=== PATIENT | male | born 1975 | race Caucasian/White ===

== ENCOUNTER 2018-02-18 09:09 | Emergency (ER) | payer MEDICARE, MEDICAID ==
--- OUTSIDE RECORDS SUMMARY | 2018-02-18 09:22 | XMS REPORT | Continuity of Care Document ---
:1975 External Reference #:[id number] Author Name Manuela Conklin Care Team Providers Name Role Phone Diane Willoughby MD Care Team Information Master [employer] Glass Technician Unavailable Diane Willoughby MD Primary Care Physician Unavailable Payers Type Date Identification Numbers Payment Provider Subscriber Policy Number: [id number] [employer] Salvatore Stevenson PayID: [id number] [address] [address] [place] [address] Policy Number: [id number] Medicaid Salvatore Stevenson PayID: [id number] [address] [place] [address] Expires: 2010 Policy Number: [id number] [employer] Salvatore Stevenson PayID: [id number] [address] [address] [place] [address] Advance Directives Description No Information Available Problems Date Description Provider Status Onset: 12/27/2017 Secondary polycythemia Georgia Gunter DO Active Onset: 12/24/2017 Tobacco use Larry Monreal MD Active Onset: 12/24/2017 Hemorrhage of rectum and anus Larry Monreal MD Active Onset: 08/21/2017 Iron deficiency Georgia Gunter DO Active Onset: 08/21/2017 Vitamin D deficiency Georgia Gunter DO Active Onset: 08/21/2017 Vitamin B deficiency Georgia Gunter DO Active Onset: 08/07/2017 Heavy drinker Georgia Gunter DO Active Onset: 08/07/2017 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 Onset: 11/11/2015 Other fecal abnormalities Mariangel Mathew MD Active Onset: 11/11/2015 Neuralgia Mariangel Mathew MD Active Onset: 11/11/2015 Late effect of spinal cord injury Mariangel Mathew MD Active Family History Date Family Member(s) Problem(s) Comments Father due to Liver Disease () Father Cirrhosis Father Diabetes Mother Diverticulitis Maternal Grandmother Crohn's Disease Social History Type Date Description Comments Sex Unknown Marital Status Patient is Lives With Alone Home Environment Lives With young daughter 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 Disabled Smokeless Tobacco Never Used Smokeless Tobacco ETOH Use Uses Alcohol Daily 10 vodkas daily Tobacco Use Start: Unknown Patient is a current smoker, smokes every day Recreational Drug Use Marijuana Daily Smoking Status Reviewed: 12/24/17 Patient is a current smoker, smokes every day Allergies, Adverse Reactions, Alerts Description No Known Drug Allergies Medications Medication Date Status Form Strength Qnty SIG Indications Ordering Provider Lovenox 12/28 Active Solution 40mg/0.4M 12ml 40 mg sq q12 Lester L Georgia, Xarelto 08/30 Active Tablets 20mg 30tab 1 tabl by s mouth every Georgia, DO Omeprazole Active Capsules DR 20mg 1 by mouth Unknown / every day Lyrica Active Capsules 100mg 1 cap by Unknown /0000 mouth twice a day Tizanidine HCL Active Capsules 2mg 2 tab by Unknown /0000 mouth at bedtime Flonase Allergy Active Suspension 50mcg/Act 2 spray each Unknown Relief /0000 nare every day ALL Day Allergy Active Tablets 10mg 1 tablet by Unknown /0000 mouth every day Flovent Diskus Active Aerosol 250mcg/Bl use 1 Unknown /0000 ist inhalation twice a day as needed (max daily dose: 2 inhalation) Ventolin HFA Active Aerosol 108(90Bas take 2 puffs Unknown /0000 e) every 6 mcg/Act hours as needed for shortness of breath. Golytely 12/24 Hx Solution 236gm 4000m drink half K62.5 Rah Rec l the evening , Larry, - before and 01/24 half morning of the procedure (1 cup every 10') Dulcolax 12/[address] 5mg 4tabs 4 tablets K62.5 Rah taken a 8pm , Larry, - the day 01/24 before the procedure Magnesium 12/24 Hx Solution 1.745GM/3 296ml one bottle K62.5 Rah Citrate 0ML at 12 noon , Larry, - the day 01/24 before colonoscopy Folic Acid 08/21 Hx Tablets 1mg 30tab 1 tabl by Bo, s mouth every Georgia, - day DO 12/12 Ergocarciferol 08/21 Hx Capsules 24777X 6caps 1 cap po q Boufal, week Georgia, - DO 12/12 Neurontin 12/01 Hx Capsules 300mg 180ca 600 mg (2 M79.2 Cator, ps tabs) by MD Mariangel - mouth 3 08/07 times a day Neurontin 12/01 Hx Capsules 300mg 180ca 600 mg (2 M79.2 Cator, ps tabs) by MD Mariangel - mouth 3 08/07 times a day Neurontin 11/10 Hx Capsules 300mg 90cap 300 mg by M79.2 Cator, s mouth 3 MD Mariangel - times a day 12/01 Fluticasone Hx Suspension 50mcg/Act 1 spray to Unknown Propionate /0000 each nare - every day 08/07 Xarelto Hx Tablets 15mg Take 1 Unknown /0000 Tablet By - Mouth Twice 08/30 A Day For Days Medications Administered in Office Medication Date Status Form Strength Qnty SIG Indications Ordering Provider Vitamin B12 Administered Injection Boufal, Injection 1000 018 Georgia, mcg/Ml DO Vitamin B12 Administered Injection Boufal, Injection 1000 018 Georgia, mcg/Ml DO Immunizations Description No Information Available Vital Signs Date Vital Result Comment 02/05/2018 3:31pm BP Systolic Sitting Left Arm 128 mmHg BP Diastolic Sitting Left Arm 90 mmHg Heart Rate 93 /min Respiratory Rate 16 /min Height 69 inches 5'9" Weight 194.00 lb BMI (Body Mass Index) 28.6 kg/m2 BSA (Body Surface Area) 2.04 m2 [place] body weight in kilograms 73 kg O2 % BldC Oximetry 95 % 12/27/2017 9:30am BP Systolic Sitting Right Arm 121 mmHg BP Diastolic Sitting Right Arm 82 mmHg Body Temperature 96.1 F Heart Rate 100 /min Respiratory Rate 20 /min Height 69 inches 5'9" Weight 189.25 lb BMI (Body Mass Index) 27.9 kg/m2 BSA (Body Surface Area) 2.02 m2 [place] body weight in kilograms 73 kg O2 % BldC Oximetry 93 % Pain Level 7 Legs 12/24/2017 9:39am BP Systolic Sitting Left Arm 126 mmHg BP Diastolic Sitting Left Arm 90 mmHg Heart Rate 76 /min Respiratory Rate 16 /min Height 69 inches 5'9" Weight 189.00 lb BMI (Body Mass Index) 27.9 kg/m2 BSA (Body Surface Area) 2.02 m2 [place] body weight in kilograms 73 kg 12/12/2017 11:25am BP Systolic 121 mmHg Left BP Diastolic 79 mmHg Left Body Temperature 98.6 F Heart Rate 101 /min Respiratory Rate 20 /min O2 % BldC Oximetry 96 % Pain Level 7 Back, Legs 11/07/2017 11:40am BP Systolic 104 mmHg Left BP Diastolic 71 mmHg Left Body Temperature 98.4 F Heart Rate 90 /min Respiratory Rate 20 /min Weight 184.00 lb O2 % BldC Oximetry 96 % Pain Level 7 Spine 10/25/2017 1:52pm BP Systolic 119 mmHg BP Diastolic 77 mmHg Body Temperature 98.5 F Heart Rate 105 /min Respiratory Rate 18 /min Weight 179.38 lb O2 % BldC Oximetry 97 % Pain Level 7 legs and feet 08/21/2017 10:18am BP Systolic 117 mmHg BP Diastolic 79 mmHg Body Temperature 98.3 F Heart Rate 98 /min Respiratory Rate 18 /min Weight 179.12 lb O2 % BldC Oximetry 97 % Pain Level 7 All over 08/07/2017 11:03am BP Systolic 115 mmHg BP Diastolic 75 mmHg Body Temperature 97.8 F Heart Rate 94 /min Respiratory Rate 16 /min Height 69.75 inches 5'9.75" Weight 181.00 lb BMI (Body Mass Index) 26.2 kg/m2 BSA (Body Surface Area) 2.00 m2 [place] body weight in kilograms 75 kg O2 % BldC Oximetry 99 % Pain Level 7 right leg 12/02/2015 9:53am BP Systolic Sitting Left Arm 122 mmHg BP Diastolic Sitting Left Arm 78 mmHg Body Temperature 99.0 F Heart Rate 99 /min Height 69 inches 5'9" Weight 183.00 lb BMI (Body Mass Index) 27.0 kg/m2 BSA (Body Surface Area) 1.99 m2 O2 % BldC Oximetry 97 % ra 11/11/2015 8:43am BP Systolic Sitting Left Arm 132 mmHg BP Diastolic Sitting Left Arm 78 mmHg Body Temperature 98.4 F Heart Rate 98 /min Height 69 inches 5'9" Weight 183.00 lb BMI (Body Mass Index) 27.0 kg/m2 BSA (Body Surface Area) 1.99 m2 [place] body weight in kilograms 73 kg O2 % BldC Oximetry 98 % ra Results Test Date Facility Test Result H/L Range Note CBC 12/27/2017 [facility] White Blood 6.5 K/uL N 3.4-10.5 1 W/Automated [address] [place] [address] [phone] Red Blood Count 5.99 M/uL High 4.20-5.80 Hemoglobin 17.4 gm/dL High 12.8-17.0 Hematocrit 52.5 % High 38.0-48.0 Mean Cell Volume 87.6 fl N 80.0-96.0 Mean Corpuscular HGB 29.0 pg N 27.0-33.0 Mean Corpuscular HGB Conc 33.1 g/dL N 31.7-36.0 Platelet Count 159 K/uL N 155-360 Red Cell Distri Width SD 48.3 fl N 36-51 Red Cell Distri Width %CV 15.1 % N 11.6-15.8 Mean Platelet Volume 10.0 fL N 6.6-10.6 Neut% 70.3 % N 33.0-73.0 Lymph % 17.0 % Low 20.0-42.0 [place] % 10.4 % High 0.0-10.0 Eo% 1.7 % N 0.0-6.6 Bas% 0.6 % N 0.0-1.1 Neut# 4.55 K/uL N 1.8-7.0 Lymph # 1.10 K/uL N 1.0-4.0 [place] # 0.67 K/uL N 0.0-0.8 Eos # 0.11 K/uL N 0.0-0.5 Baso # 0.04 K/uL N 0.0-0.1 Iron-Tibc-%Sat 12/27/2017 [facility] Serum Iron 56 g/dL Low 65-175 [address] [place] [address] [phone] Total Iron Binding Capacity 499 g/dL High 250-450 Transferrin %Saturation 11 % Low 12-57 Laboratory test 12/27/2017 [facility] Ferritin 16 ng/mL Low 26-388 finding [address] [place] [address] [phone] Comprehensive 12/05/2017 [facility] Glucose 132 mg/dL High 74-106 2 Metabolic Panel [address] [place] [address] [phone] BUN 6 mg/dL Low 7-18 Creatinine 1.0 mg/dL N 0.6-1.3 Glom Filtration Rate, Estimate >60 mL/min >60 If >60 mL/min >60 3 BUN/Creat 6.0 ratio Sodium 137 mmol/L N 136-145 Potassium 3.5 mmol/L N 3.5-5.1 Chloride 96 mmol/L Low 98-107 Carbon Dioxide 32 mmol/L N 21-32 Anion Gap 9 mEq/L N 8-16 Calcium 8.7 mg/dL N 8.5-10.1 Total Protein 7.0 g/dL N 6.4-8.2 Albumin 3.5 g/dL N 3.4-5.0 Globulin 3.5 g/dL N 1.9-4.3 Alb/Glob 1.0 ratio Bilirubin,Total 1.3 mg/dL High 0.2-1.0 Sgot/Ast 67 U/L High 15-37 SGPT/Alt 59 U/L N 12-78 Alkaline Phosphatase 95 U/L N 45-117 CBS W/Automated Diff 12/05/2017 [facility] White Blood 9.1 K/uL N 3.4-10.5 [address] [place] [address] [phone] Red Blood Count 6.01 M/uL High 4.20-5.80 Hemoglobin 17.7 gm/dL High 12.8-17.0 Hematocrit 53.7 % High 38.0-48.0 Mean Cell Volume 89.4 fl N 80.0-96.0 Mean Corpuscular HGB 29.5 pg N 27.0-33.0 Mean Corpuscular HGB Conc 33.0 g/dL N 31.7-36.0 Platelet Count 130 K/uL 155-360 Red Cell Distri Width SD 50.0 fl N 36-51 Red Cell Distri Width %CV 15.5 % N 11.6-15.8 Mean Platelet Volume 11.1 fL 6.6-10.6 Neut% 80.6 % High 33.0-73.0 Lymph % 10.0 % Low 20.0-42.0 [place] % 8.5 % N 0.0-10.0 Eo% 0.7 % N 0.0-6.6 Bas% 0.2 % N 0.0-1.1 Neut# 7.31 K/uL High 1.8-7.0 Lymph # 0.91 K/uL Low 1.0-4.0 [place] # 0.77 K/uL N 0.0-0.8 Eos # 0.06 K/uL N 0.0-0.5 Baso # 0.02 K/uL N 0.0-0.1 Iron-Tibc-%Sat 12/05/2017 [facility] Serum Iron 134 g/dL N 65-175 [address] [place], [place] [address] [phone] Total Iron Binding Capacity 461 g/dL High 250-450 Transferrin %Saturation 29 % N 12-57 Laboratory test 12/05/2017 [facility] Ferritin 37 ng/mL N 26-388 finding [address] [place], [place] [address] [phone] Vitamin B12 And 12/05/2017 [facility] Vitamin B12 438 pg/mL N 193-986 Folate [address] [place] [address] [phone] Folic Acid 19.4 ng/mL High 3.1-17.5 Slide Review 12/05/2017 [facility] Slide Review . 4 [address] [place] [address] [phone] Comprehensive 10/18/2017 [facility] Glucose 107 mg/dL High 74-106 5 Metabolic Panel [address] [place] [address] [phone] BUN 2 mg/dL Low 7-18 Creatinine 0.8 mg/dL N 0.6-1.3 Glom Filtration Rate, Estimate >60 mL/min >60 If >60 mL/min >60 6 BUN/Creat 2.5 ratio Sodium 133 mmol/L Low 136-145 Potassium 3.6 mmol/L N 3.5-5.1 Chloride 93 mmol/L Low 98-107 Carbon Dioxide 33 mmol/L High 21-32 Anion Gap 7 mEq/L Low 8-16 Calcium 8.4 mg/dL Low 8.5-10.1 Total Protein 6.7 g/dL N 6.4-8.2 Albumin 3.4 g/dL N 3.4-5.0 Globulin 3.3 g/dL N 1.9-4.3 Alb/Glob 1.0 ratio Bilirubin,Total 1.3 mg/dL High 0.2-1.0 Sgot/Ast 77 U/L High 15-37 SGPT/Alt 73 U/L N 12-78 Alkaline Phosphatase 93 U/L N 45-117 CBS W/Automated Diff 10/18/2017 [facility] White Blood 7.2 K/uL N 3.4-10.[address] Count [place], [place] [address] [phone] Red Blood Count 5.75 M/uL N 4.20-5.80 Hemoglobin 16.7 gm/dL N 12.8-17.0 Hematocrit 48.8 % High 38.0-48.0 Mean Cell Volume 84.9 fl N 80.0-96.0 Mean Corpuscular HGB 29.0 pg N 27.0-33.0 Mean Corpuscular HGB Conc 34.2 g/dL N 31.7-36.0 Platelet Count 122 K/uL Low 155-360 Red Cell Distri Width SD 54.9 fl High 36-51 Red Cell Distri Width %CV 18.5 % High 11.6-15.8 Mean Platelet Volume 10.3 fL N 6.6-10.6 Neut% 73.6 % High 33.0-73.0 Lymph % 13.2 % Low 20.0-42.0 [place] % 11.3 % High 0.0-10.0 Eo% 1.5 % N 0.0-6.6 Bas% 0.4 % N 0.0-1.1 Neut# 5.27 K/uL N 1.8-7.0 Lymph # 0.95 K/uL Low 1.0-4.0 [place] # 0.81 K/uL High 0.0-0.8 Eos # 0.11 K/uL N 0.0-0.5 Baso # 0.03 K/uL N 0.0-0.1 Iron-Tibc-%Sat 10/18/2017 [facility] Serum Iron 41 g/dL Low 65-175 [address] [place], [place] [address] [phone] Total Iron Binding Capacity 483 g/dL High 250-450 Transferrin %Saturation 8 % Low 12-57 Laboratory test 10/18/2017 [facility] Ferritin 129 ng/mL N 26-388 finding [address] [place] [address] [phone] Vitamin B12 And 10/18/2017 [facility] Vitamin B12 504 pg/mL N 193-986 Folate [address] [place] [address] [phone] Folic Acid > 20.0 ng/mL High 3.1-17.5 Comprehensive Metabolic 09/27/2017 [facility] Glucose 90 mg/dL N 74-106 7 Panel [address] [place], [place] [address] [phone] BUN 2 mg/dL Low 7-18 Creatinine 0.8 mg/dL N 0.6-1.3 Glom Filtration Rate, Estimate >60 mL/min >60 If >60 mL/min >60 8 BUN/Creat 2.5 ratio Sodium 135 mmol/L Low 136-145 Potassium 3.6 mmol/L N 3.5-5.1 Chloride 96 mmol/L Low 98-107 Carbon Dioxide 28 mmol/L N 21-32 Anion Gap 11 mEq/L N 8-16 Calcium 8.6 mg/dL N 8.5-10.1 Total Protein 7.1 g/dL N 6.4-8.2 Albumin 3.6 g/dL N 3.4-5.0 Globulin 3.5 g/dL N 1.9-4.3 Alb/Glob 1.0 ratio Bilirubin,Total 1.5 mg/dL High 0.2-1.0 Sgot/Ast 80 U/L High 15-37 SGPT/Alt 62 U/L N 12-78 Alkaline Phosphatase 103 U/L N 45-117 CBS W/Automated Diff 09/27/2017 [facility] White Blood 7.9 K/uL N 3.4-10.[address] [place] [address] [phone] Red Blood Count 5.79 M/uL N 4.20-5.80 Hemoglobin 16.8 gm/dL N 12.8-17.0 Hematocrit 48.9 % High 38.0-48.0 Mean Cell Volume 84.5 fl N 80.0-96.0 Mean Corpuscular HGB 29.0 pg N 27.0-33.0 Mean Corpuscular HGB Conc 34.4 g/dL N 31.7-36.0 Platelet Count 121 K/uL Low 155-360 Red Cell Distri Width SD 55.4 fl High 36-51 Red Cell Distri Width %CV 19.3 % High 11.6-15.8 Mean Platelet Volume 10.7 fL High 6.6-10.6 Neut% 73.7 % High 33.0-73.0 Lymph % 13.7 % Low 20.0-42.0 [place] % 10.6 % High 0.0-10.0 Eo% 1.5 % N 0.0-6.6 Bas% 0.5 % N 0.0-1.1 Neut# 5.84 K/uL N 1.8-7.0 Lymph # 1.09 K/uL N 1.0-4.0 [place] # 0.84 K/uL High 0.0-0.8 Eos # 0.12 K/uL N 0.0-0.5 Baso # 0.04 K/uL N 0.0-0.1 Laboratory test 09/27/2017 [facility] Vitamin 54.3 30.0-100.0 [address] D,25-Hydroxy ng/[place] [address] [phone] Vitamin B12 And 09/27/2017 [facility] Vitamin B12 359 pg/mL N 193-[address] [place] [address] [phone] Folic Acid > 20.0 ng/mL High 3.1-17.5 Laboratory test 09/27/2017 [facility] Ferritin 126 ng/mL N 26-388 finding [address] [place] [address] [phone] Iron-Tibc-%Sat 09/27/2017 [facility] Serum Iron 42 g/dL Low 65-175 [address] [place] [address] [phone] Total Iron Binding Capacity 525 g/dL High 250-450 Transferrin %Saturation 8 % Low 12-57 Laboratory test 08/07/2017 [facility] Ferritin 12 ng/mL Low 26-388 10 finding [address] [place] [address] [phone] Vitamin B12 And 08/07/2017 [facility] Vitamin B12 310 pg/mL N 193-986 Folate [address] [place] [address] [phone] Folic Acid 5.1 ng/mL N 3.1-17.5 Laboratory 08/07/2017 [facility] Vitamin 17.6 Low 30.0-100.0 11 test finding [address] [facility] D,25-Hydroxy ng/[place] [address] [phone] Sedimentation Rate 1 mm/hr N 0-15 12 Gamma Glutamyl Transpeptidase 48 U/L N 5-85 Fibrinogen 286 mg/dL N 200-467 13 Factor V Leiden Mutation 08/07/2017 [facility] Factor V (SEE [address] Leiden NOTE) [place] [address] [phone] Methylenetetrahydrofolate 08/07/2017 [facility] MTHFR,Dna (SEE [address] Analysis NOTE) [place] [address] [phone] Protein Electro.,S 08/07/2017 [facility] Protein,Tot 5.9 g/dL Low 6.0 [address] [facility] al,Serum -8. [place] [address] 5 [phone] Albumin 3.1 g/dL 2.9-4.4 Zvqgl-6-Tdxnpcnp 0.3 g/dL 0.0-0.4 Qfkco-0-Eiidwpnk 0.9 g/dL 0.4-1.0 Beta Globulin 0.9 g/dL 0.7-1.3 Gamma Globulin 0.8 g/dL 0.4-1.8 M-Carmelo Not Observed g/dL Not Observed Globulin, Total 2.8 g/dL 2.2-3.9 A/G Ratio 1.1 0.7-1.7 Please Note: (SEE NOTE) 16 P E Interpretation, Serum (SEE NOTE) 17 Iron-Tibc-%Sat 08/07/2017 [facility] Serum Iron 20 g/dL Low 65-175 [address] [place] [address] [phone] Total Iron Binding Capacity 489 g/dL High 250-450 Transferrin %Saturation 4 % Low 12-57 CBS W/Automated Diff 08/07/2017 [facility] White Blood 4.6 K/uL N 3.4-10.[address] [place] [address] [phone] Red Blood Count 5.68 M/uL N 4.20-5.80 Hemoglobin 16.7 gm/dL N 12.8-17.0 Hematocrit 50.0 % High 38.0-48.0 Mean Cell Volume 88.0 fl N 80.0-96.0 Mean Corpuscular HGB 29.4 pg N 27.0-33.0 Mean Corpuscular HGB Conc 33.4 g/dL N 31.7-36.0 Platelet Count 181 K/uL N 155-360 Red Cell Distri Width SD 54.1 fl High 36-51 Red Cell Distri Width %CV 16.8 % High 11.6-15.8 Mean Platelet Volume 9.7 fL N 6.6-10.6 Neut% 63.2 % N 33.0-73.0 Lymph % 22.7 % N 20.0-42.0 [place] % 10.4 % High 0.0-10.0 Eo% 2.4 % N 0.0-6.6 Bas% 1.3 % High 0.0-1.1 Neut# 2.92 K/uL N 1.8-7.0 Lymph # 1.05 K/uL N 1.0-4.0 [place] # 0.48 K/uL N 0.0-0.8 Eos # 0.11 K/uL N 0.0-0.5 Baso # 0.06 K/uL N 0.0-0.1 Comprehensive Metabolic 08/07/2017 [facility] Glucose 79 mg/dL N 74-106 Panel [address] [place] [address] [phone] BUN 3 mg/dL Low 7-18 Creatinine 0.7 mg/dL N 0.6-1.3 Glom Filtration Rate, Estimate >60 mL/min >60 If >60 mL/min >60 18 BUN/Creat 4.2 ratio Sodium 140 mmol/L N 136-145 Potassium 3.6 mmol/L N 3.5-5.1 Chloride 98 mmol/L N 98-107 Carbon Dioxide 31 mmol/L N 21-32 Anion Gap 11 mEq/L N 8-16 Calcium 8.3 mg/dL Low 8.5-10.1 Total Protein 6.6 g/dL N 6.4-8.2 Albumin 3.1 g/dL Low 3.4-5.0 Globulin 3.5 g/dL N 1.9-4.3 Alb/Glob 0.9 ratio Bilirubin,Total 0.5 mg/dL N 0.2-1.0 Sgot/Ast 60 U/L High 15-37 SGPT/Alt 52 U/L N 12-78 Alkaline Phosphatase 116 U/L N 45-117 1 I82.401 2 E61.1 3 Note: Persistent reduction for 3 months or more in an eGFR <60 mL/min/1.73 m2 defines CKD. Patients with eGFR values >/=60 mL/min/1.73 m2 may also have CKD if evidence of persistent proteinuria is present. The original MDRD equation for estimated GFR is not valid for patients less than 18 years of age. Additional information may be found at www.[email or web address]. 4 Instrument flagged sample for slide review. Less than 10% Bands seen, no other immature WBC's seen. RBC morphology essentially normal. Platelet estimate=NORMAL 5 E61.1 E55.9 E53.9 I82.401 6 Note: Persistent reduction for 3 months or more in an eGFR <60 mL/min/1.73 m2 defines CKD. Patients with eGFR values >/=60 mL/min/1.73 m2 may also have CKD if evidence of persistent proteinuria is present. The original MDRD equation for estimated GFR is not valid for patients less than 18 years of age. Additional information may be found at [email or web address]. 7 E61.1 E61.1 S24.152S I.82.401 8 Note: Persistent reduction for 3 months or more in an eGFR <60 mL/min/1.73 m2 defines CKD. Patients with eGFR values >/=60 mL/min/1.73 m2 may also have CKD if evidence of persistent proteinuria is present. The original MDRD equation for estimated GFR is not valid for patients less than 18 years of age. Additional information may be found at www.[email or web address]. 9 Vitamin D deficiency has been defined by the [place] of Medicine and an Endocrine Society practice guideline as a level of serum 25-OH vitamin D less than 20 ng/mL (1,2). The Endocrine Society went on to further define vitamin D insufficiency as a level between 21 and 29 ng/mL (2). 1. IOM ([place] of Medicine). 2010. Dietary reference intakes for calcium and D. [place]: The National Academies Press. 2. Ren Doss, Saida MURRIETA, et al. Evaluation, treatment, and prevention of vitamin D deficiency: an Endocrine Society clinical practice guideline. JCEM. 2010; 96(7):1911-30. Performed at: [facility] [id number] [place] Former: Deanne Monterroso MD, Phone: [phone] 10 G48.554Y,C60.420 11 Vitamin D deficiency has been defined by the [place] of Medicine and an Endocrine Society practice guideline as a level of serum 25-OH vitamin D less than 20 ng/mL (1,2). The Endocrine Society went on to further define vitamin D insufficiency as a level between 21 and 29 ng/mL (2). 1. IOM ([place] of Medicine). 2010. Dietary reference intakes for calcium and D. [place]: The National Academies Press. 2. Ren Doss Bischoff-Ferrari HA, et al. Evaluation, treatment, and prevention of vitamin D deficiency: an Endocrine Society clinical practice guideline. JCEM. 2010; 96(7):1911-30. Performed at: [facility] [address] [id number] [place] Former: Deanne Monterroso MD, Phone: [phone] 12 Method: Sediplast Modified Westergren 13 Is patient on heparin protocol? N Is patient on anticoagulants? <Blank> 14 Result: Negative (no mutation found) Factor V Leiden is a specific mutation (R506Q) in the factor V gene that is associated with an increased risk of venous thrombosis. Factor V Leiden is more resistant to inactivation by activated protein C. As a result, factor V persists in the circulation leading to a mild hyper- coagulable state. The Leiden mutation accounts for 90% - 95% of APC resistance. Factor V Leiden has been reported in patients with deep vein thrombosis, pulmonary embolus, central retinal vein occlusion, cerebral sinus thrombosis and hepatic vein thrombosis. Other risk factors to be considered in the workup for venous thrombosis include the [id number] mutation in the factor II (prothrombin) gene, protein S and C deficiency, and antithrombin deficiencies. Anticardiolipin antibody and lupus anticoagulant analysis may be appropriate for certain patients, as well as homocysteine levels. Contact your local [facility] for information on how to order additional testing if desired. Genetic counselors are available for health care providers to discuss results at [phone] Methodology: DNA analysis of the Factor V gene was performed by allele- specific PCR. The diagnostic sensitivity and specificity is >99% for both. Molecular-based testing is highly accurate, but as in any laboratory test, diagnostic errors may occur. All test results must be combined with clinical information for the most accurate interpretation. This test was developed and its performance characteristics determined by [facility]. It has not been cleared or approved by the Food and Drug Administration. References: Anupama James (1996). Clin Lab Med 16:169-186. Jatin Brooks, PhD, FACMG Trinh Greenfield, PhD, FACMG Whitney Palmer M.S., PhD, FACMG Lainey Caba, PhD, FACMG Linda Haskins, PhD, FACMG Tutu Brody PhD, FAC Performed at: [facility] [address] [facility], [place], [place] [id number] [place] Former: Dennis Kaplan MD, Phone: [phone] 15 Result: NEGATIVE (No mutation identified) Interpretation: The MTHFR C677T and F0950H variants were not identified. While the individual does not possess either of these factors, other risk factors may be detected through systematic clinical laboratory analysis. Hyperhomocysteinemia may occur due to mutations in enzymes other than MTHFR that are involved in homocysteine metabolism, or arise due to acquired factors such as folate, vitamin B6 or vitamin B12 deficiency. Therefore, this individual's MTHFR result does not guarantee a normal homocysteine level. In the evaluation of vascular and obstetric risk, consider measuring fasting homocysteine. Methylenetetrahydrofolate reductase (MTHFR) is a qiu enzyme in the folate pathway and is responsible for the metabolism of homocysteine. There are two common variants in the MTHFR gene, c.655c>T (p.[id number]), referred to as C677T, and c.1286A>C (p.Qis568Qkl), referred to as S7767H. Individuals homozygous for C677T (two copies of the variant), have decreased activity of the MTHFR enzyme and a predisposition to hyperhomocysteinemia, particularly when deficient in folate. Hyperhomocysteinemia is a risk factor for venous thrombosis and coronary artery disease and is associated with an increased risk of open neural tube defects. The C677T variant does not independently increase risk of these conditions in the absence of hyperhomocysteinemia. The Q9802V variant is not associated with elevated homocysteine levels unless a C677T variant is also present; however, the clinical significance of heterozygosity for both C677T and C2721K is controversial. Population data suggest that these two variants are not present on the same chromosome, but rare exceptions have been reported of triple variant MTHFR genotypes (ie. homozygous for one variant and heterozygous for the other). Homozygosity for C677T has an estimated frequency of 10% to 15% in Caucasians and 25% in Hispanics. Additional information: Dietary folic acid, B6 and B12 supplementation has been suggested to lower homocysteine levels in some people. Folic acid supplementation has been shown to reduce the occurrence of neural tube defects. Genetic counselors are available for health care providers to discuss results at [phone]-[facility] [place]. Methodology: DNA analysis of the MTHFR gene was performed by PCR amplification followed by restriction analysis. The diagnostic sensitivity is >99% for both. Molecular-based testing is highly accurate, but as in any laboratory test, rare diagnostic errors may occur. All test results must be combined with clinical information for the most accurate interpretation. This test was developed and its performance characteristics determined by [employer]. It has not been cleared or approved by the Food and Drug Administration. References: Cholo RODRIGUEZ, Eliezer Q. Am J Epidemiol 2000; 151(9):862-877. Shilpa GONZALEZ, Farzana BOSWELL. Arch Pathol Lab Med 2007; 131(6):872-884. Frosst P et al. Anita Rita 1995; 10(1):111-113. Hickey SE et al. Rita Med 2013; 15(2):153-156. Winfall C et al. Obstet Gynecol 2011; 118(3):730-740. Chaitanya B et al. Eur J Epidemiol 2013; 28(8):621-647. Jatin Brooks, PhD, FACMG Trinh Greenfield, PhD, FACMG Hilary CamachoSZeb, PhD, FACMG Lainey Caba, PhD, FACMG Linda Haskins, PhD, FAC Tutu Brody, PhD, FACMG Performed at: - [facility] [address] [id number] [place] Former: Dennis Kaplan MD, Phone: [phone] 16 Protein electrophoresis scan will follow via computer, mail, or electrician office delivery. 17 The SPE pattern appears essentially unremarkable. Evidence of monoclonal protein is not apparent. Performed at: - [facility] [address] [id number] [place] Former: Deanne Monterroso MD, Phone: [phone] 18 Note: Persistent reduction for 3 months or more in an eGFR <60 mL/min/1.73 m2 defines CKD. Patients with eGFR values >/=60 mL/min/1.73 m2 may also have CKD if evidence of persistent proteinuria is present. The original MDRD equation for estimated GFR is not valid for patients less than 18 years of age. Additional information may be found at www.kdoqi.org. Procedures Date Code Description Status 01/15/2018 87665 Colonoscopy With Polypectomy Completed 01/15/2018 43043 EGD With Biopsy Completed 01/15/2018 68884870 Colonoscopy Completed 12/27/2017 26388 Theraputic Or Diagnostic Injection Completed 08/21/2017 68867 Theraputic Or Diagnostic Injection Completed 12/20/2003 70444 Exc Benign Lesion Except Skin Tag-Trunk,Arm,Or Legs 1.1 Completed To 2.0CM Encounters Type Date Location Provider Dx Diagnosis Office Visit 02/05/2018 Larry Welsh MD D12.5 Benign neoplasm of 3:15p sigmoid colon K62.5 Hemorrhage of anus and rectum R10.12 Left upper quadrant pain K29.80 Duodenitis without bleeding Office Visit 12/27/2017 9:30a Oncology Office [place], I82.401 Acute embolism [place], DO and thombos unsp deep veins of r low extrem E61.1 Iron deficiency K62.5 Hemorrhage of anus and rectum E53.9 Vitamin B deficiency, unspecified E55.9 Vitamin D deficiency, unspecified D75.1 Secondary polycythemia Office Visit 12/24/2017 9:45a Larry Welsh MD E61.1 Iron deficiency K62.5 Hemorrhage of anus and rectum Z72.0 Tobacco use Office Visit 12/12/2017 11:30a Infusion Center [place]a coburn I82.401 Acute embolism B., [employer] and thombos unsp deep veins of r low extrem E61.1 Iron deficiency K62.5 Hemorrhage of anus and rectum Office Visit 11/07/2017 12:00p Infusion Center [place] I82.401 Acute embolism B., [employer] and thombos unsp deep veins of r low extrem E61.1 Iron deficiency Office Visit 10/25/2017 2:00p Infusion Center [place] I82.401 Acute embolism B., [employer] and thombos unsp deep veins of r low extrem E61.1 Iron deficiency Office Visit 08/21/2017 10:30a Oncology Office [place], I82.401 Acute embolism [place], DO and thombos unsp deep veins of r low extrem E53.9 Vitamin B deficiency, unspecified E55.9 Vitamin D deficiency, unspecified E61.1 Iron deficiency Office Visit 08/07/2017 10:45a Oncology Office [place], I82.401 Acute embolism [place], DO and thombos unsp deep veins of r low extrem F10.10 Alcohol abuse, uncomplicated Office Visit 12/02/2015 10:00a Physical Medicine Mariangel Mathew, S24.152S Oth incomplete & Infectious MD lesion at T2-T6, Disease sequela M79.2 Neuralgia and neuritis, unspecified Office Visit 11/11/2015 8:30a Physical Medicine Mariangel Mathew, S24.152S [facility] incomplete & Infectious MD lesion at T2-T6, Disease sequela R19.5 Other fecal abnormalities M79.2 Neuralgia and neuritis, unspecified Plan of Treatment 02/05/2018 - Larry Monreal, MDD12.5 Benign neoplasm of sigmoid colonComments: 3 + cm tubulovillous adenomarepeat in March 2018K62.5 Hemorrhage of anus and rectumComments:will need repeat colonoscopyFollow up:march 2018R10.12 Left upper quadrant painNew Xrays:CT, Abdomen & Pelvis W/O Contrast, Ordered: Comments:order ct scanK29.80 Duodenitis without bleedingNew Labs:Celiac Disease Comp AB Profile, Ordered: 02/05/18Comments:lymphocytic duodenitis
[2018-02-18 09:30] VITALS: BP 156/100
--- NOTE | 2018-02-18 09:46 | UC ---
UC General HPI - HPI Summary HPI Summary: edema of bilateral legs and and face x 3 days denies any chest pain , no sob, no cough , no abdominal pain , pt. has a history of alcoholism heavy drinking daily no fever, no chills , had similar symptoms few months ago and his symptoms improved by diuretics - History of Current Complaint Chief Complaint: UCGeneralIllness Stated Complaint: BILATERAL LEG COMPLAINT Hx Obtained From: Patient Onset/Duration: Gradual Onset, Lasting Days - 3, Still Present Timing: Constant Onset Severity: Moderate Current Severity: Severe Pain Intensity: 7 Associated Signs & Symptoms: Positive: Edema. Negative: Agitation, Abdominal Pain, Anticoagulation Therapy, Back Pain, Confusion, Cough, Chest Pain, Decreased Responsiveness, Dizziness, Diarrhea, Dysuria, Decreased Oral Intake, Diaphoresis, Fever, Headache, Hematemesis, Hemoptysis, Immunocompromised, In- Dwelling Medication Device, Melena, Nausea, Palpitations, Recent Medication Changes, Syncope, SOB, Trauma, Vomiting, Wheezing, Weakness - Allergy/Home Medications Allergies/Adverse Reactions: Allergies Allergy/AdvReac Type Severity Reaction Status Date / Time No Known Allergies Allergy Verified 02/18/18 09:24 Home Medications: Home Medications Albuterol HFA INHALER* [Ventolin HFA Inhaler*] 1 - 2 puff INH Q4H PRN 02/18/18 [ History Confirmed 02/18/18] Fluticasone-Salmeterol 250-50* [Advair Diskus 250-50*] 1 puff INH QAM 02/18/18 [ History Confirmed 02/18/18] Pregabalin CAP(*) [Lyrica CAP(*)] 50 mg PO BID 02/18/18 [History Confirmed 02/18] PMH/Surg Hx/FS Hx/Imm Hx - Additional Past Medical History Additional PMH: alcoholism chronic back pain GI/ History: Gastroesophageal Reflux - Surgical History Surgical History: Yes Surgery Procedure, Year, and Place: back surgeries x3 - Family History Known Family History: Positive: None Negative: Blood Disorder - Social History Alcohol Use: "at least ten shots a day" Alcohol Amount: 1/2 bottle vodka Substance Use Type: Marijuana Substance Use Comment - Amount & Last Used: Daily Smoking Status (MU): Heavy Every Day Tobacco Smoker Type: Cigarettes Amount Used/How Often: 1 PPD Length of Time of Smoking/Using Tobacco: Since Age 15 Review of Systems All Other Systems Reviewed And Are Negative: Yes Constitutional: Positive: Negative Skin: Positive: Negative Eyes: Positive: Negative ENT: Positive: Negative Respiratory: Positive: Negative Is Patient Immunocompromised?: No Physical Exam Triage Information Reviewed: Yes Appearance: Ill-Appearing, Pain Distress Vital Signs: Initial Vital Signs Temp 98.7 F 02/18/18 09:22 Pulse 80 02/18/18 09:22 Resp 18 02/18/18 09:22 BP 156/100 02/18/18 09:22 Pulse Ox 99 02/18/18 09:22 Vital Signs Reviewed: Yes Eye Exam: Normal Eyes: Positive: Conjunctiva Clear ENT: Positive: Normal ENT inspection, Hearing grossly normal, Pharynx normal Neck: Positive: Supple, Nontender, No Lymphadenopathy Respiratory: Positive: Chest non-tender, Lungs clear, Normal breath sounds Cardiovascular: Positive: RRR, No Murmur, Pulses Normal Abdomen Description: Positive: Nontender, Soft, Distended. Negative: CVA Tenderness (R), CVA Tenderness (L), Guarding Bowel Sounds: Positive: Present Musculoskeletal: Positive: Other: - lower ext : +2 edema R > L Neurological Exam: Normal Neurological: Positive: Alert Course/Dx - Diagnoses Provider Diagnosis: Lower extremity edema, Alcoholism /alcohol abuse Discharge - Sign-Out/Discharge Documenting (check all that apply): Patient Departure All imaging exams completed and their final reports reviewed: No Studies - Discharge Plan Condition: Good Disposition: TRANS HIGHER [facility] Patient Education Materials: Leg Edema (ED) Referrals: Diane Willoughby MD [Primary Care Provider] - Additional Instructions: please go to [facility] ED for evaluation and tx your would need blood work and more detailed work up - Billing Disposition and Condition Condition: GOOD Disposition: Trans Higher l of Care Fac
== END 2018-02-18 09:44 | disposition short-term general hospital (02) ==
LOC: UCCORT 09:09
DX: R60.9 Edema, unspecified (principal); F10.10 Alcohol abuse, uncomplicated; F17.210 Nicotine dependence, cigarettes, uncomplicated
CPT/HCPCS: 99212; G0463

== ENCOUNTER 2019-02-05 11:39 | Emergency (ER) | payer MEDICARE, MEDICAID ==
[2019-02-05 12:45] VITALS: BP 129/75
[2019-02-05] MEDS ORDERED: Lidocaine 1% MPF ** 5 ML VIAL INJ ONE (12:56)
--- NOTE | 2019-02-05 13:21 | UC ---
Skin Complaint HPI - HPI Summary HPI Summary: Pt presents with c/o tender lump on anterior chest wall, proximal sternum. Pt states that he has hand ao non tender "lump there for years and over the last two days it has become increasingly tender, red and bigger. - History of Current Complaint Chief Complaint: UCSkin Time Seen by Provider: 02/05/19 12:51 Stated Complaint: SKIN COMPLAINT Hx Obtained From: Patient Onset/Duration: Gradual Onset, Lasting Days, Still Present, Worse Since - the last 48 hours Skin Exposure Onset/Duration: Weeks Ago Timing: Constant Onset Severity: Mild Current Severity: Moderate Pain Intensity: 1 Location: Discrete - anterior mid sternum Character: Swelling, Pain, Redness, Raised, Painful Aggravating Factor(s): Touch Alleviating Factor(s): Nothing Associated Signs & Symptoms: Positive: Tenderness - Allergy/Home Medications Allergies/Adverse Reactions: Allergies Allergy/AdvReac Type Severity Reaction Status Date / Time No Known Allergies Allergy Verified 02/05/19 12:45 PMH/Surg Hx/FS Hx/Imm Hx Previously Healthy: Yes - Surgical History Surgical History: Yes Surgery Procedure, Year, and Place: back surgeries x3 - Family History Known Family History: Positive: Cardiac Disease Negative: Blood Disorder - Social History Occupation: Disabled Lives: Alone Alcohol Use: Daily Alcohol Amount: 1/2 bottle vodka Substance Use Type: Marijuana Substance Use Comment - Amount & Last Used: Daily Smoking Status (MU): Heavy Every Day Tobacco Smoker Type: Cigarettes Amount Used/How Often: 1 PPD Length of Time of Smoking/Using Tobacco: Since Age 15 Have You Smoked in the Last Year: Yes Review of Systems All Other Systems Reviewed And Are Negative: Yes Constitutional: Positive: Negative Skin: Positive: Other - swelling, tender lump Eyes: Positive: Negative ENT: Positive: Negative Respiratory: Positive: Negative Cardiovascular: Positive: Negative Gastrointestinal: Positive: Negative Genitourinary: Positive: Negative Motor: Positive: Negative, Other - pt has hx of spinal cord injury Neurovascular: Positive: Negative Musculoskeletal: Positive: Negative Neurological: Positive: Negative Psychological: Positive: Negative Is Patient Immunocompromised?: No Physical Exam Triage Information Reviewed: Yes Appearance: Well-Appearing Vital Signs: Initial Vital Signs Temp 98.5 F 02/05/19 12:40 Pulse 84 02/05/19 12:40 Resp 16 02/05/19 12:40 BP 129/75 02/05/19 12:40 Pulse Ox 100 02/05/19 12:40 Vital Signs Reviewed: Yes Eye Exam: Normal ENT Exam: Normal Dental Exam: Normal Neck exam: Normal Respiratory Exam: Normal Respiratory: Positive: No respiratory distress Musculoskeletal Exam: Normal - at baseline, uses canew to ambulate Neurological Exam: Normal Psychological Exam: Normal Skin Exam: Other - ~ 3 cm in diameter, riased tender mass, modreately erythematous, moveable Procedures - Incision and Drainage Anterior Midline Proximal Chest Site: anterior chest, mid sternal, proxiaml Anesthesia: Local Instrument(s): Scalpel - 11 large amount of purulent drainage and sanguinous drainage. Course/Dx - Course Course Of Treatment: 4 cc of 1% lidocaine, injected, large amount of purulent and sanguineous drainage. - Differential Diagnoses - Skin Complaint Differential Diagnoses: Abscess, Cellulitis, MRSA - Diagnoses Provider Diagnosis: Abscess of chest wall Discharge ED - Sign-Out/Discharge Documenting (check all that apply): Patient Departure All imaging exams completed and their final reports reviewed: No Studies - Discharge Plan Condition: Stable Disposition: HOME Prescriptions: Cephalexin CAP* [Keflex 500 CAP*] 500 mg PO Q6H #40 cap Patient Education Materials: Abscess (ED) Referrals: Diane Willoughby MD [Primary Care Provider] - If Needed - Billing Disposition and Condition Condition: STABLE Disposition: Home - Attestation Statements Provider Attestation: Per institutional requirements, I have reviewed the chart, however, I was not consulted specifically or made aware of this patient by the midlevel provider. I did not personally evaluate, interact with , or disposition this patient.
== END 2019-02-05 13:33 | disposition home or self-care (01) ==
LOC: UCCORT 11:39
DX: L02.213 Cutaneous abscess of chest wall (principal); F17.210 Nicotine dependence, cigarettes, uncomplicated
CPT/HCPCS: 10060; 87070; 87205; 87640; 87641; 99212; G0463